=== PATIENT | female | born 1960 | race Caucasian/White ===

== ENCOUNTER 2019-03-02 08:36 | Outpatient (CLI) | payer OTHER, SELFPAY ==
--- NOTE | 2019-03-02 08:39 | DI.RAD.S_ITS ---
PROCEDURE: PAIN C/T FACET INJ/BLK 1ST L INDICATIONS: SPONDYLOSIS FINDINGS: Fluoroscopic spot filming was performed to verify placement of spinal needles at the C5-C6 and C6-C7 level(s), as labeled on the films. Appropriate location(s) of the needle tip(s) was confirmed by injection of iodinated contrast. IMPRESSION: Fluoroscopy for pain management. Dictated by: Rob Atwood M.D. on 03/02/2019 at 10:17 Approved by: Rob Atwood M.D. on 03/02/2019 at 10:18
[2019-03-02 09:03] VITALS: BP 107/74; PULSE 67; RESP 16; TEMP 36.1; O2SAT 99
[2019-03-02 09:20] VITALS: BP 128/87; PULSE 67; RESP 16; O2SAT 98
[2019-03-02] MEDS: fentaNYL 100 MCG/2 ML INJ 50 MCG IV (09:21)
[2019-03-02] MEDS: MIDAZOLAM 5 MG/5 ML VIAL IV (09:21)
[2019-03-02 09:25] VITALS: BP 109/64; PULSE 66; RESP 16; O2SAT 98
[2019-03-02] MEDS: DEXAMETHASONE 10 MG/ML VIAL 30 MG INJ (09:35)
[2019-03-02] MEDS: BUPIVACAINE 0.5% (PF) VIAL 2 ML INJ (09:35)
[2019-03-02] MEDS: IOPAMIDOL 15 ML VIAL 3 ML INJ (09:35)
--- NOTE | 2019-03-02 09:41 | P.PCN_ITS ---
Procedures Date/Time Date of procedure: 03/02/19 Time of procedure: 09:41 General Procedure description: PREOP DIAGNOSIS 1. FACET ARTHROPATHY 2. AXIAL NECK PAIN POST OP DIAGNOSIS 1. FACET ARTHROPATHY 2. AXIAL NECK PAIN PROCEDURES 1. FLUOROSCOPICALLY GUIDED, CONTRAST-CONTROLLED RIGHT C5/6 AND C6/7 FACET JOINT INJECTIONS WITH CONSCIOUS SEDATION. PHYSICIAN: Deo Benavidez, DO INDICATIONS Angel is referred by Dr. Alba for treatment of Axial Neck Pain DESCRIPTION OF PROCEDURE Fluoroscopically guided, contrast-controlled right C5/6 and C6/7 facet joint injections with conscious sedation. Following review of allergy and review of potential side effects and complications, including, but not necessarily limited to, infection, allergic reaction, local tissue breakdown, stroke, temporary or permanent nerve injury and paralysis, the patient indicated that the patient understood and agreed to proceed. An informed consent document was signed by the patient, witnessed by a nurse, and placed in the patient's chart. Additionally, other treatment options including medications, modalities, and physical therapy were reviewed with the patient. After review of previous anaesthesic history and IV conscious sedation the reny ent was deemed safe to proceed with todays procedure with IV conscious sedation as ASA class II designation. Safety time-out was performed to confirm patient ID, procedure to be performed and site of procedure. IV sedation was accomplished with a combination of 2mg of Versed and 50mcg of Fentanyl was administered by the RN after DO order, titrated to patient comfort during the course of the procedure while the patient remained responsive to all verbal commands In the prone position, following sterile prep and drape of the cervical spine region, the posterior aspect of the right C5/6 and C6/7 facet joints were identified fluoroscopically. The skin was anesthetized via a 25-gauge 1.5-inch needle with 1% lidocaine solution into the corresponding facet joints. At this point, a 25-gauge 2.5-inch spinal needle was atraumatically introduced and advanced under fluoroscopic guidance into the corresponding facet joints. Following negative aspiration, injections of approximately 0.2-cc of Isovue 200 confirmed interarticular placement without vascular uptake. At this point, a total of 1 cc including 0.5 cc or 5 mg of dexamethasone combined with 0.5 cc of 1% lidocaine solution was injected without complication into each of the corresponding facet joints. The procedure tolerated the procedure well without signs or symptoms of complications prior to transfer to the recovery area continued monitoring without incident. The patient was then transferred to the recovery area where they were observed for an appropriate period of time after the injection. The patient reported a VAS score of 7 prior to the procedure and a post- procedure VAS of 0. Total Fluoroscopy Time: 20.5 seconds Total Conscious Sedation Time: 24 min POST OP INSTRUCTIONS They were provided a Pain Log to continue to record their response to the target-specific procedure prior to their follow-up visit with their referring physician. Additionally, specific post-injection care instructions and a co ntact number to our office were provided if concerns arise regarding possible complications associated with the procedure are suspected. Deo Benavidez DO Complications: none
[2019-03-02 09:50] VITALS: BP 118/74; BP 129/85; PULSE 76; PULSE 88; RESP 16; O2SAT 96; O2SAT 97
--- NOTE | 2019-03-02 10:53 | PC.NURSE ---
DI note: Received patient post procedure, awake, alert and calm. VSS. Ambulated with stand by assist from WC to chair.
--- NOTE | 2019-03-02 17:21 | PC.NURSE ---
late entry post procedure note: Time out at 0920. patient medicated per providers orders. patient tolerated procedure well. VSS and O2 Sat wnl on RA. Able to sit up and transfer to w/c with standby assist. Handoff report given to Ginette Lance RN at 0837. Pain level 0/10
== END 2019-03-02 10:00 | disposition home or self-care (01) ==
LOC: RAD 08:39
PROVIDERS: PCP Family Medicine; Visit Provider Physical Medicine & Rehabilitation
DX: M47.812 Spondylosis without myelopathy or radiculopathy, cervical region (principal); M54.5 Low back pain
CPT/HCPCS: 64490; 64491; 99152; J1100; J2250; J3010

== ENCOUNTER → 2021-12-08 13:34 | Outpatient (CLI) | payer OTHER, SELFPAY ==
--- NOTE | 2021-12-08 13:37 | DI.RAD.S_ITS ---
PROCEDURE: XR CERVICAL SPINE 4V OR 5V INDICATIONS: NECK PAIN TECHNIQUE: 5 views of the cervical spine acquired. COMPARISON: None. FINDINGS: Bones: No fractures or dislocations to the C7-T1 level. There is grade 1 C3 on C4 anterolisthesis. Severe degenerative changes are present at C5-6 including intervertebral disc space narrowing and osteophytosis. On the left there is moderate foraminal stenosis at C3-4, C4-5, and C5-6. On the right there is moderate foraminal stenosis at C2-3, C3-4, C4-5, and C5-6. Soft tissues: No prevertebral soft tissue swelling. IMPRESSION: 1. Severe degenerative change at C5-6. 2. Multilevel moderate bilateral foraminal stenosis as above. Dictated by: Shanti Morales M.D. on 12/08/2021 at 16:01 Approved by: Shanti Morales M.D. on 12/08/2021 at 16:02
== END ==
PROVIDERS: Referring Provider Physical Medicine & Rehabilitation; Visit Provider Physical Medicine & Rehabilitation
DX: M47.812 Spondylosis without myelopathy or radiculopathy, cervical region (principal); M48.02 Spinal stenosis, cervical region; M50.00 Cervical disc disorder with myelopathy, unspecified cervical region
CPT/HCPCS: 72050

== ENCOUNTER 2022-01-22 08:27 | Outpatient (CLI) | payer OTHER, SELFPAY ==
[2022-01-22] VITALS (9 sets, daily range): BP systolic 106–129; BP diastolic 64–78; PULSE 64–77; RESP 17–22; TEMP 36.4; O2SAT 96–100
--- NOTE | 2022-01-22 08:31 | DI.RAD.S_ITS ---
PROCEDURE: PAIN C/T FACET INJ/BLK 1ST L INDICATIONS: SPINAL STENOSIS COMPARISON: [facility], , PAIN C/T FACET INJ/BLK 1ST L, 03/02/2019, 9:24. FINDINGS: Fluoroscopic spot filming was performed to verify placement of spinal needles at the left side of C5-6 and C6-7 level(s), as labeled on the films. Appropriate location(s) of the needle tip(s) was confirmed by injection of iodinated contrast. IMPRESSION: Fluoro guidance was provided for left-sided C5-6 and C6-7 facet joint injection to be performed by ordering physician. Dictated by: Paresh Carrillo M.D. on 01/22/2022 at 10:55 Approved by: Paresh Carrillo M.D. on 01/22/2022 at 10:55
[2022-01-22] MEDS: MIDAZOLAM 2 MG/2 ML VIAL IV (09:39)
[2022-01-22] MEDS: IOPAMIDOL 15 ML VIAL 3 ML INJ (09:43)
[2022-01-22] MEDS: DEXAMETHASONE 10 MG/ML VIAL 20 MG INJ (09:43)
[2022-01-22] MEDS: BUPIVACAINE 0.5% (PF) VIAL 2 ML INJ (09:43)
--- NOTE | 2022-01-22 09:58 | P.PCN_ITS ---
Date/Time/Diagnoses Date of procedure: 01/22/22 Time of procedure: 09:58 Pre-procedure diagnosis: 1. FACET ARTHROPATHY 2. AXIAL NECK PAIN Post-procedure diagnosis: same Procedure Notes Procedure: 1. FLUOROSCOPICALLY GUIDED, CONTRAST-CONTROLLED LEFT C5/6 AND C6/7 FACET JOINT INJECTIONS WITH CONSCIOUS SEDATION. Indications: Angel is referred by Dr. Del Cid for treatment of Axial Neck Pain Physician: Deo Benavidez Total Fluoroscopy time (seconds): 11 Total sedation minutes: 13 Complications: none Procedure in detail & Post-procedure care: DESCRIPTION OF PROCEDURE Fluoroscopically guided, contrast-controlled left C5/6 and C6/7 facet joint injections with conscious sedation. Following review of allergy and review of potential side effects and complications, including, but not necessarily limited to, infection, allergic reaction, local tissue breakdown, stroke, temporary or permanent nerve injury and paralysis, the patient indicated that the patient understood and agreed to proceed. An informed consent document was signed by the patient, witnessed by a nurse, and placed in the patient's chart. Additionally, other treatment options including medications, modalities, and physical therapy were reviewed with the patient. After review of previous anaesthesic history and IV conscious sedation the patient was deemed safe to proceed with today?s procedure with IV conscious sedation as ASA class II designation. Safety time-out was performed to confirm patient ID, procedure to be performed and site of procedure. IV sedation was accomplished with a combination of 4mg of Versed was administered by the RN after DO order, titrated to patient comfort during the course of the procedure while the patient remained responsive to all verbal commands In the prone position, following sterile prep and drape of the cervical spine region, the posterior aspect of the left C5/6 and C6/7 facet joints were identified fluoroscopically. The skin was anesthetized via a 25-gauge 1.5-inch needle with 1% lidocaine solution into the corresponding facet joints. At this point, a 25-gauge 2.5-inch spinal needle was atraumatically introduced and advanced under fluoroscopic guidance into the corresponding facet joints. Following negative aspiration, injections of approximately 0.2cc of Isovue 200 confirmed interarticular placement without vascular uptake. At this point, a total of 1cc including 0.5cc or 5mg of dexamethasone combined with 0.5cc of 1% lidocaine solution was injected without complication into each of the corresponding facet joints. The procedure tolerated the procedure well without signs or symptoms of complications prior to transfer to the recovery area continued monitoring without incident. The patient was then transferred to the recovery area where they were observed for an appropriate period of time after the injection. The patient reported a VAS score of 7 prior to the procedure and a post- procedure VAS of 0. POST OP INSTRUCTIONS They were provided a Pain Log to continue to record their response to the target-specific procedure prior to their follow-up visit with their referring physician. Additionally, specific post-injection care instructions and a contact number to our office were provided if concerns arise regarding possible complications associated with the procedure are suspected.
== END 2022-01-22 10:21 | disposition home or self-care (01) ==
LOC: RAD 08:28
PROVIDERS: PCP Family Medicine; Referring Provider Physical Medicine & Rehabilitation; Visit Provider Physical Medicine & Rehabilitation
DX: M47.812 Spondylosis without myelopathy or radiculopathy, cervical region (principal)
CPT/HCPCS: 64490; 64491; 99152; J1100; J2250

== ENCOUNTER 2022-05-28 08:07 | Outpatient (CLI) | payer OTHER, SELFPAY ==
[2022-05-28] VITALS (7 sets, daily range): BP systolic 116–128; BP diastolic 63–76; PULSE 73–80; RESP 11–18; TEMP 36.6; O2SAT 96–100
--- NOTE | 2022-05-28 08:09 | DI.RAD.S_ITS ---
PROCEDURE: PAIN C/T FACET INJ/BLK 1ST L INDICATIONS: SPINAL STENOSIS COMPARISON: [facility], , PAIN C/T FACET INJ/BLK 1ST L, 01/22/2022, 9:43. FINDINGS: Fluoroscopic spot filming was performed to verify placement of spinal needles at the C5-C6 and C6-C7 level(s), as labeled on the films. Appropriate location(s) of the needle tip(s) was confirmed by injection of iodinated contrast. IMPRESSION: Intraprocedural fluoroscopy was provided for guidance and anatomical localization. Please see the procedure report for further details. Dictated by: Bassam Montano M.D. on 05/28/2022 at 14:40 Approved by: Bassam Montano M.D. on 05/28/2022 at 15:37
[2022-05-28] MEDS: MIDAZOLAM 2 MG/2 ML VIAL IV (09:30)
[2022-05-28] MEDS: IOPAMIDOL 15 ML VIAL 3 ML INJ (09:33)
[2022-05-28] MEDS: DEXAMETHASONE 10 MG/ML VIAL 20 MG INJ (09:34)
[2022-05-28] MEDS: BUPIVACAINE 0.5% (PF) 10 ML VIAL 2 ML SUBCUT (09:35)
--- NOTE | 2022-05-28 09:44 | P.PCN_ITS ---
Date/Time/Diagnoses Date of procedure: 05/28/22 Time of procedure: 09:44 Pre-procedure diagnosis: 1. FACET ARTHROPATHY 2. AXIAL NECK PAIN Post-procedure diagnosis: same Procedure Notes Procedure: 1. FLUOROSCOPICALLY GUIDED, CONTRAST-CONTROLLED LEFT C5/6 AND C6/7 FACET JOINT INJECTIONS WITH CONSCIOUS SEDATION. Indications: Angel is referred by Dr. Del Cid for treatment of Axial Neck Pain Physician: Deo Benavidez Total Fluoroscopy time (seconds): 8 Total sedation minutes: 10 Complications: none Procedure in detail & Post-procedure care: DESCRIPTION OF PROCEDURE Fluoroscopically guided, contrast-controlled left C5/6 and C6/7 facet joint injections with conscious sedation. Following review of allergy and review of potential side effects and complications, including, but not necessarily limited to, infection, allergic reaction, local tissue breakdown, stroke, temporary or permanent nerve injury and paralysis, the patient indicated that the patient understood and agreed to proceed. An informed consent document was signed by the patient, witnessed by a nurse, and placed in the patient's chart. Additionally, other treatment options including medications, modalities, and physical therapy were reviewed with the patient. After review of previous anaesthesic history and IV conscious sedation the patient was deemed safe to proceed with today?s procedure with IV conscious sedation as ASA class II designation. Safety time-out was performed to confirm patient ID, procedure to be performed and site of procedure. IV sedation was accomplished with a combination of 2mg of Versed was administered by the RN after DO order, titrated to patient comfort during the course of the procedure while the patient remained responsive to all verbal commands In the prone position, following sterile prep and drape of the cervical spine region, the posterior aspect of the left C5/6 and C6/7 facet joints were identified fluoroscopically. The skin was anesthetized via a 25-gauge 1.5-inch needle with 1% lidocaine solution into the corresponding facet joints. At this point, a 25-gauge 2.5-inch spinal needle was atraumatically introduced and advanced under fluoroscopic guidance into the corresponding facet joints. Following negative aspiration, injections of approximately 0.2cc of Isovue 200 confirmed interarticular placement without vascular uptake. At this point, a total of 1cc including 0.5cc or 5mg of dexamethasone combined with 0.5cc of 1% lidocaine solution was injected without complication into each of the corresponding facet joints. The procedure tolerated the procedure well without signs or symptoms of complications prior to transfer to the recovery area continued monitoring without incident. The patient was then transferred to the recovery area where they were observed for an appropriate period of time after the injection. The patient reported a VAS score of 7 prior to the procedure and a post- procedure VAS of 0. POST OP INSTRUCTIONS They were provided a Pain Log to continue to record their response to the target-specific procedure prior to their follow-up visit with their referring physician. Additionally, specific post-injection care instructions and a contact number to our office were provided if concerns arise regarding possible complications associated with the procedure are suspected.
== END 2022-05-28 10:05 | disposition home or self-care (01) ==
PROVIDERS: PCP Family Medicine; Referring Provider Physical Medicine & Rehabilitation; Visit Provider Physical Medicine & Rehabilitation
DX: M47.812 Spondylosis without myelopathy or radiculopathy, cervical region (principal)
CPT/HCPCS: 64490; 99152; J1100; J2250

== ENCOUNTER 2022-08-27 08:08 | Outpatient (CLI) | payer OTHER, SELFPAY ==
[2022-08-27] VITALS (9 sets, daily range): BP systolic 101–138; BP diastolic 53–67; PULSE 63–75; RESP 17–21; O2SAT 97–100
--- NOTE | 2022-08-27 08:10 | DI.RAD.S_ITS ---
PROCEDURE: PAIN C/T INTERLAMINAR INJECT INDICATIONS: SPINAL STENOSIS COMPARISON: None. FINDINGS: Fluoroscopic spot filming was performed to verify placement of spinal needles at the C6-7 level(s), as labeled on the films. Appropriate location(s) of the needle tip(s) was confirmed by injection of iodinated contrast. IMPRESSION: Epidural steroid injection is cervical spine. Dictated by: Eric Rodriguez M.D. on 08/27/2022 at 12:24 Approved by: Eric Rodriguez M.D. on 08/27/2022 at 12:25
[2022-08-27] MEDS: MIDAZOLAM 2 MG/2 ML VIAL IV (08:58)
[2022-08-27] MEDS: IOPAMIDOL 15 ML VIAL 3 ML INJ (09:03)
[2022-08-27] MEDS: DEXAMETHASONE 10 MG/ML VIAL 30 MG INJ (09:04)
[2022-08-27] MEDS: BUPIVACAINE 0.25% (PF) VIAL 2 ML INJ (09:04)
--- NOTE | 2022-08-27 09:26 | PM.PROC.IR.1 ---
Date/Time/Diagnoses Date of procedure: 08/27/22 Time of procedure: 09:26 Pre-procedure diagnosis: 1. CERVICAL STENOSIS, 2. CERVICAL HNP WITH UPPER EXTREMITY RADICULAR FEATURES Post-procedure diagnosis: same Procedure Notes Procedure: 1. FLUORSCOPICALLY GUIDED CONTRAST CONTROLLED INTERLAMINAR EPIDURAL STEROID INJECTION - C6/7 TL KAREN Indications: Angel is referred by Dr. Del Cid for treatment of Cervical HNP with Upper Extremity Paresthesias. Physician: Deo Benavidez Total Fluoroscopy time (seconds): 57 Total sedation minutes: 21 Complications: none Procedure in detail & Post-procedure care: FINDINGS Cervical Stenosis due to disc deterioration and nerve root irritation and nerve root irritation DESCRIPTION OF PROCEDURE Fluoroscopically guided, contrast-controlled C6/7 translaminar epidural steroid injection with conscious sedation. Following review of allergy and review of potential side effects and complications, including, but not necessarily limited to, infection, allergic reaction, local tissue breakdown, temporary as well as permanent nerve injury, stroke, paralysis, and possible , the patient indicated that patient understood and agreed to proceed. An informed consent document was signed by the patient, witnessed by a nurse, and placed in the patient's chart. Additionally, other treatment options including modalities, medications, and physical therapy were reviewed with the patient. After review of previous anaesthesic history and IV conscious sedation the patient was deemed safe to proceed with today?s procedure with IV conscious sedation as ASA class II designation. Safety time-out was performed to confirm patient ID, procedure to be performed and site of procedure. IV sedation was accomplished with a combination of 2mg of Versed and 50mcg of Fentanyl administered by the RN after DO order, titrated to patient comfort during the course of the procedure while the patient remained responsive to all verbal commands. In the prone position, following sterile prep and drape of the cervical region, the C6/7 translaminar space was identified fluoroscopically. The skin was anesthetized via a 25-gauge 1.5-inch needle with 1% lidocaine solution. At this point, a 25-gauge, 2.5-inch short bevel spinal needle was atraumatically introduced and advanced under fluoroscopic guidance into epidural space at the C6/7 translaminar space. Depth was confirmed on lateral view. Radiological data, including multiple fluoroscopic views of the cervical spine, reveal a spinal needle at the C6/7 translaminar space. Lateral views then show placement of the needle in the epidural space. Subsequent views show contrast material flowing superiorly and inferiorly in the epidural space. DSA fluoroscopy with live contrast injection, once again, confirmed no vascular or intrathecal uptake. At this point, using loss of resistance technique with saline and air, the epidural space was entered. Following negative aspiration, injection of approximately 1.5 cc of Isovue-200 with live fluoroscopy in the AP view confirmed epidural flow in the epidural space without vascular or intrathecal uptake observed. Subsequently, a test dose of 1 cc of 1% lidocaine solution was injected and patient was observed for two minutes without signs or symptoms of complications, including abdominal pain, shortness of breath, bilateral upper or lower extremity weakness, nausea and vomiting, prior to steroid injection. At this point, 3cc or 30mg of dexamethasone was then injected without incident. The patient tolerated the procedure well without signs or symptoms of complications prior to being transferred to the recovery area for further monitoring, The patient was then transferred to the recovery area where they were observed for an appropriate period of time after the injection. The patient reported a VAS score of 6 prior to the procedure and a post-procedure VAS of 0. POST OP INSTRUCTIONS The patient was provided a Pain Log to continue to record their response to the target-specific procedure prior to follow-up visit with the referring provider. Additionally, specific post-injection care instructions and a contact number to our office were provided if concerns arise regarding possible complications associated with the procedure are suspected.
== END 2022-08-27 09:34 | disposition home or self-care (01) ==
PROVIDERS: PCP Family Medicine; Referring Provider Physical Medicine & Rehabilitation; Visit Provider Physical Medicine & Rehabilitation
DX: M48.02 Spinal stenosis, cervical region (principal); M47.22 Other spondylosis with radiculopathy, cervical region
CPT/HCPCS: 62321; 99152; J1100; J2250; J3490

== ENCOUNTER → 2022-11-09 07:03 | Outpatient (CLI) | payer OTHER, SELFPAY ==
--- NOTE | 2022-11-09 07:08 | DI.RAD.S_ITS ---
PROCEDURE: XR CERVICAL SPINE 4V OR 5V INDICATIONS: neck pain s/p fall TECHNIQUE: 5 views of the cervical spine acquired. COMPARISON: None. FINDINGS: Bones: No fractures or dislocations to the T1 level. Disc space narrowing and anterior osteophytes noted in the mid cervical spine. Degenerative grade 1 anterior spondylolisthesis C3-4. Craniovertebral relationships normal. Oblique images show foraminal stenosis C3-4, C4-5 on the right and C2-3, C3-4 C4-5 on the left Soft tissues: No prevertebral soft tissue swelling. IMPRESSION: Multilevel degenerative disc disease and arthropathy associated with foraminal stenosis in the upper cervical spine Approved by: Miguelito Lima M.D. on 11/09/2022 at 15:52
== END ==
PROVIDERS: PCP Family Medicine; Referring Provider Physical Medicine & Rehabilitation; Visit Provider Physical Medicine & Rehabilitation
DX: M47.812 Spondylosis without myelopathy or radiculopathy, cervical region (principal); M48.02 Spinal stenosis, cervical region; M50.30 Other cervical disc degeneration, unspecified cervical region; M43.12 Spondylolisthesis, cervical region
CPT/HCPCS: 72050